=== PATIENT | female | born 1950 | race Caucasian/White ===

== ENCOUNTER 2023-07-20 00:47 | Inpatient (IN) | payer MEDICARE, MEDICAID, SELFPAY ==
[2023-07-19 21:58] VITALS: BMI 29.3
[2023-07-19 22:02] VITALS: BP 118/57
[2023-07-19 22:03] VITALS: BP 118/57
--- NOTE | 2023-07-19 22:16 | ED.GENMED ---
History of Present Illness
General
Chief Complaint: Skin Problem
Source: patient, ambulance crew and shelter records
Time Seen by Provider: 07/19/23 22:04
Nursing documentation reviewed up to this point in time: agreed with
Travel History
Have you had any contact with someone who has COVID-19?: No
Do you have any symptoms of coronavirus? Fever > 100 degrees, chills, cough, shortness of breath, sore throat, loss of taste or smell, muscle aches, or headache?: No
History of Present Illness
History of Present Illness:
Pleasant 72-year-old female presents with right arm swelling and erythema. She was running a fever. Patient has a history of lymphedema in her right arm. This is secondary to breast cancer where they did lymph node excision. She states that
while typically having swelling, she noticed some mild erythema approximately 1 month ago. She has not been on any antibiotics recently. Today she states that the swelling and erythema worsened. Patient also told the healthcare staff at [facility] where she resides that she had rib pain. They administered nitroglycerin and Tylenol, which did not provide any relief. Patient denied ever having chest pain and reports no rib pain. Patient's temperature on arrival was 99.5 after the
acetaminophen. She does complain of right arm pain.
Vital signs are stable. Patient not hypoxic
Nursing note reviewed. I agree with nursing documentation up to this point in time.
Home Meds and allergies reviewed.
NUMBER AND COMPLEXITY OF PROBLEMS ADDRESSED AT THE ENCOUNTER
� Chronic conditions affecting care: Right arm lymphedema, hypertension, heart murmur
� Acute Exacerbation and/or Progression of Chronic Illness: Lymphedema
� Differential Diagnosis includes: Lymphedema, DVT, cellulitis
AMOUNT AND/OR COMPLEXITY OF DATA TO BE REVIEWED AND ANALYZED
I performed an independent evaluation of the following and my interpretation is:
EKG:
CT:
X-rays:
Ultrasound:
Laboratory Studies:
Other:
Review of other/old records: No old records available, transfer records from [facility] reviewed
Clinical information was obtained by an independent historian: EMS
Prescriptions/Medications Considered but not given:
Further testing considered but not performed:
RISK OF COMPLICATIONS AND/OR MORBIDITY OR MORTALITY OF PATIENT MANAGEMENT
Social determinants of health affecting care: Good Social Support
Discussion with other providers:
Escalation of care including admission/observation vs risk of discharge considered:
CRITICAL CARE NOTE:
Total Time (exclusive of procedures):
Update:
Phy Exam
General Physical Exam
General Presentation: well appearing and no apparent distress
General Skin: warm and dry
General Habitus: normal
General Mental: alert
General Hydration: appears well hydrated
ENT Exam
ENT Exam: EOMI, pharynx normal, neck supple and normocephalic
Eye Exam
Eye Exam: PERRL, cornea clear and conjunctiva normal
Cardiovascular Exam
Cardiovascular Exam: regular rate/rhythm, no edema, no murmur and normal peripheral pulses
Pulmonary Exam
Pulmonary Exam: lungs clear, no respiratory distress, no rales, no crackles, no rhonchi, no stridor, no wheezing and no cough
Gastrointestinal Exam
Gastrointestinal Exam: normal bowel sounds, non tender, soft, no organomegaly, no pulsatile mass and non distended
Neurological Exam
Neurological Exam: alert, oriented x3, no motor deficits and speech normal
Musculoskeletal Exam
Musculoskeletal Exam: full ROM and no edema
Skin Exam
Skin Exam: redness
Psychiatric Exam
Psychiatric Exam: normal mood/affect
Course
Orders/Labs/Results
Orders:
Orders
07/19/23 22:14
Electrocardiogram (*1) Urgent
Reason for Study: Other
Other Reason for Exam: sepsis
EKG- Treatment ONCE
US Arms, Right [US Periph Venous UPPER Ext RT] Urgent
Comment:
Reason For Exam: Lymphedema with erythema
07/19/23 22:28
Complete Blood Count/With Diff Urgent
Comprehensive Metabolic Panel Urgent
Lactic Acid Q4H
Comment: CANCEL 2nd LACTIC ACID IF 1st LACTIC ACID IS LESS THAN 2
PTT Urgent
Procalcitonin Urgent
PCT Algorithmm Indication: Sepsis
Prothrombin Time Urgent
Troponin I Urgent
Blood Culture Q30M
KACIE Source: Blood/Venous
Specimen Description:
Blood Culture Q30M
KACIE Source: Blood/Venous
Specimen Description:
07/19/23 23:05
Urinalysis Reflex To Culture Urgent
Date Specimen was Collected: 07/19/23
Time Specimen was Collected: 23:03
Urine Microscopic Reflex Cult Urgent
Urine Culture Urgent
KACIE Source: U
Specimen Description:
Date Specimen was Collected: 07/19/23
Time Specimen was Collected: 23:03
07/19/23 23:45
Vancomycin [Vancocin] 2,000 mg 0.9% Sodium Chloride 500 ml [Nss] 500 ml IV NOW
07/20/23 00:14
Vancomycin [Vancocin] 1,500 mg 0.9% Sodium Chloride [Nss] 20 ml 0.9% Sodium Chloride 250 ml [Nss] 250 ml IV NOW
07/20/23 00:18
Admit/Transfer Patient As Directed
Co-Sign Provider:
Level of Care: Inpatient admission
Assign to:: Medical/Surgical
Physician / Group: Sharan
Diagnosis: RUE Cellulitis
Reason for Hospitalization: RUE Cellulitis
Expected length of stay greater than two midnights?: Yes
ELOS- Estimated Length of Stay in days: 3
I certify the patient meets the requirements for IP care: Yes
07/20/23 00:31
Code Status As Directed
Resuscitation Status: Do not resuscitate
Reached after discussion with pt or family/Healthcare POA: Yes
07/20/23 00:33
DNR Bracelet Application ONCE
07/20/23 02:42
Acetaminophen [Tylenol] 650 mg PO Q4H PRN
Ketorolac [Toradol] 15 mg IV Q6HPRN PRN
VANCOMYCIN Pharmacy to Dose [VANCOCIN Pharmacy to Dose] 1 each Pharmacy To Prepare [Call Pharmacy To Prepare] 0 ml IV PER PROTOCOL
07/20/23 02:42
Activity As Directed
Activity Level: Ambulate
With Assistance
Bladder Scan As Directed
Follow Bladder Retention/Intermittent Cath Algorithm?: Yes
PRN if no void in __ hours: 6
Frequency: Per Retention Algorithm
If Bladder Scan Result >: 400
then:: Straight cath
I/O [Intake/ Output] As Directed
Frequency: Per unit guidelines
Straight Cath As Directed
Frequency: Per Retention Algorithm
Additional Instructions: straight cath as needed per acute urinary retention algorithm for 24 hrs
Additional Instructions: for bladder scan greater than 400 mL
Vital Signs As Directed
Frequency: Per unit guidelines
Oxygen Therapy [O2 Therapy] [RESP] Routine
Titrate/Wean O2 to maintain O2 sat greater than (%): 94
Rx Incentive Spirometry [RESP] Routine
Frequency: q1h while awake
Ot Eval And Treat Routine
PT Consult [Pt Eval And Treat] Routine
Activity Level: Ambulate
With Assistance
DX Deep Vein Thrombosis Video Routine
07/20/23 06:00
Basic Metabolic Panel IN AM
Complete Blood Count/No Diff IN AM
TSH Reflex To Free T4 Routine
07/20/23 08:00
Uelliggyr-Sjh-Rtmm [Femara] 2.5 mg PO DAILY
Lisinopril [Zestril] 20 mg PO DAILY
Metoprolol [Lopressor] 25 mg PO DAILY
07/20/23 18:00
Enoxaparin Sodium [Lovenox] 40 mg SC QPM
07/21/23 Breakfast
Regular
Abnormal Lab Results
07/19/23 07/19/23
22:28 23:05
RBC 4.05 L 10^6/uL
(4.20-5.40)
Hct 35.9 L %
(37.0-47.0)
MCH 31.1 H pg
(27.0-31.0)
Sodium 131 L mmol/L
(135-145)
BUN 18 H mg/dl
(7-17)
Glucose 151 H mg/dl
(70-99)
Total Protein 5.5 L g/dl
(6.3-8.2)
Albumin 3.1 L g/dl
(3.5-5.0)
Urine Ketones 3+ A
(Negative)
Ur Occult Blood Reflex 2+ A
(Negative)
Urine Nitrite (Reflex) Positive A
(Negative)
Leukocyte Esterase Rfl Trace A
(Negative)
Urine RBC 7-10 A /HPF
(0-2)
07/19/23 22:28
07/19/23 22:28
Vital Signs
Initial and Last Documented VS:
Initial Vital Signs
BP
118/57
07/19/23 22:02
Last Documented Vital Signs
Temp Pulse Resp BP Pulse Ox
98.4 F 68 18 115/55 96
07/20/23 02:47 07/20/23 02:47 07/20/23 02:47 07/20/23 02:47 07/20/23 02:47
*Critical Care Note
Total Time (30-74mins, 75-104mins- exclusive of procedures): Not Applicable
Update Note
Update Note:
Ultrasound of the right upper extremity negative for DVT
ED Attending Note
-
Portions of this chart may have been created with voice recognition software.� Occasional wrong word or��sound alike� substitutions may have occurred due to the inherent limitations of voice recognition software.
Discharge Plan
Departure
Patient Disposition: Admit
Date of Disposition: 07/19/23
Time of Disposition: 23:47
Admit to: Telemetry
Presentation/result/management discussed w/ accepting MD/DO: Hospitalist
Condition: Fair
Discharge Problem:
Cellulitis, Acquired lymphedema
Interventions
Interventions:
*Risk Screen - Suicide Last Done: 07/19/23 22:15
*General Assessment Last Done: 07/19/23 22:09
*Neglect/Abuse Screening Last Done: 07/19/23 22:15
ED- Fall Risk Assessment Last Done: 07/19/23 22:15
*ED COVID-19 Vaccine History Last Done: 07/19/23 22:09
*Nursing Disposition Last Done: 07/20/23 02:35
ED-Skin Assessment Last Done: 07/19/23 22:15
Discharge Date and Time
Discharge Date/Time: 07/20/23 02:36
[2023-07-19 22:41] LABS: % Basophils 0.2 % (0-2); % Immature Granulocytes 0.5 % (0-0.5); % Lymphocytes 25.6 % (20.5-51.1); % Monocytes 3.9 % (1.7-9.3); % Neutrophils 69.8 % (42.2-75.2); Absolute Lymphocytes 1.7 10^3/uL (1.2-3.4); Absolute Monocytes 0.3 10^3/uL (0.1-0.6); Absolute Neutrophils 4.6 10^3/uL (1.4-6.5); Hematocrit 35.9 % (37.0-47.0); Hemoglobin 12.6 g/dL (12.0-16.0); Mean Corp Hgb Conc. 35.1 g/dL (33.0-37.0); Mean Corpuscular Hgb 31.1 pg (27.0-31.0); Mean Corpuscular Volume 88.6 fL (81.0-99.0); Mean Platelet Volume 10.2 fL (7.4-10.4); Nucleated Red Blood Cells % 0 %; Platelet Count 199 10^3/uL (130-400); Red Blood Cell Count 4.05 10^6/uL (4.20-5.40); Red Cell Dist. Width 12.1 % (11.5-14.5); White Blood Cell Count 6.6 10^3/uL (4.8-10.8)
[2023-07-19 22:52] LABS: INR 1.07; Lactic Acid 0.8 mmol/L (0.7-2.0); PT 13.8 Sec (11.4-14.6)
[2023-07-19 22:53] LABS: ALT (SGPT) 22 U/L (0-35); APTT 31.4 Sec (23.4-35.0); AST (SGOT) 30 U/L (14-36); Albumin 3.1 g/dl (3.5-5.0); Alkaline Phosphatase 91 U/L (38-126); Blood Urea Nitrogen 18 mg/dl (7-17); Calcium 8.5 mg/dl (8.4-10.2); Carbon Dioxide 24 mmol/L (22-30); Chloride 104 mmol/L (98-107); Estimated Creatinine Clearance 55 ml/min; Glucose 151 mg/dl (70-99); Potassium 3.8 mmol/L (3.5-5.1); Sodium 131 mmol/L (135-145); Total Bilirubin 0.6 mg/dl (0.2-1.3); Total Protein 5.5 g/dl (6.3-8.2); eGFR > 60.00
[2023-07-19 23:05] LABS: Troponin I < 0.012 ng/ml
[2023-07-19 23:08] LABS: Procalcitonin 0.08 ng/ml (0.0-0.25)
[2023-07-19 23:14] LABS: Urine Albumin Trace (Neg - Trace); Urine Bilirubin Negative (Negative); Urine Character Very Cloudy (Clear); Urine Color Yellow; Urine Glucose Negative (Negative); Urine Ketone 3+ (Negative); Urine Leukocyte Trace (Negative); Urine Nitrite Positive (Negative); Urine Occult Blood 2+ (Negative); Urine Specific Gravity 1.015 (<1.030); Urine Urobilinogen Negative (Neg - 1+)
[2023-07-19 23:20] LABS: Urine Squamous Cell 0-2 /LPF (Few)
[2023-07-19 23:21] LABS: Urine Amorphous Seen
[2023-07-20] VITALS (9 sets, daily range): BP systolic 78–130; BP diastolic 48–64; BMI 27.5
--- NOTE | 2023-07-20 00:35 | HPS.HSE ---
Family Physician
-
Family Physician: Floyd Devlin
Chief Complaint
-
Arm swelling / fever
History of Present Illness
Patient is a 72y F with PMH significant for breast cancer and hypertension and who presents to ED complaining of right arm swelling and redness for about one month. Patient first noted redness in the RUE about on month ago - localized to the
elbow at that time. She denies any significant pain at any point. She states that the redness has steadily increased over the past month or so. Today she had a fever at the [place] to 101.5 and was sent to the ED for further evaluation and treatment.
Patient is able to flex the elbow without pain. She denies any associated symptoms including cough, dyspnea, N/V/D, etc.
Patient is s/p lumpectomy and axillary dissection for breast cancer in 2012. She then underwent adjuvant chemo and XRT. She has chronic lymphedema as a result; however, the redness is entirely new.
Medical History
Past Medical History
Past Medical History: Reports Other
Additional Past Medical History:
Breast Cancer s/p Lumpectomy, Chemo and XRT
Hypertension
GERD
Past Surgical History: Reports Other
Additional Past Surgical History:
Right Lumpectomy / Axillary Dissection (2012)
Robotic Hysterectomy
Right TKA
Left JASPREET
Left Rotator Cuff Surgery x 2
Social History
Tobacco: Non-smoker
Alcohol: Occasional (Once a month.)
Drug: None
Family History
Family History: Not pertinent
Allergies / Home Medications
Allergies reflects when Allergies were last updated in [employer].
Home Medications with original date entered in [employer]
Allergy/Medication List:
Allergies
Allergy/AdvReac Type Severity Reaction Status Date / Time
Carbapenems Allergy Hives Verified 07/20/23 00:11
Cephalosporins Allergy Hives Verified 07/20/23 00:11
Penicillins Allergy Hives Verified 07/19/23 22:03
shellfish derived Allergy angioedema Verified 07/20/23 00:11
Sulfa (Sulfonamide Allergy Hives Verified 07/20/23 00:11
Antibiotics)
tetanus and diphtheria Allergy Myalgia Verified 07/20/23 00:11
toxoids
Home Medications
acetaminophen 325 mg tablet 650 mg PO Q4H PRN Pain / Temp > 101 07/20/23
bisacodyl 10 mg rectal suppository 10 mg [place] DAILY PRN Constipation 07/20/23
ferrous sulfate 325 mg (65 mg iron) tablet 325 mg PO DAILY 07/20/23
letrozole 2.5 mg tablet 2.5 mg PO DAILY 07/20/23
lidocaine 4 % topical patch 1 patch topical DAILY 07/20/23
lisinopril 20 mg tablet 20 mg PO DAILY 07/20/23
magnesium hydroxide 400 mg/5 mL oral suspension (Milk of Magnesia) 5 ml PO DAILY PRN constipation 07/20/23
magnesium oxide 400 mg PO DAILY 07/20/23
metoprolol tartrate 25 mg tablet 25 mg PO DAILY 07/20/23
multivitamin 1 tab PO DAILY 07/20/23
omeprazole 20 mg capsule,delayed release 20 mg PO DAILY 07/20/23
ondansetron HCl 4 mg tablet 4 mg PO Q6H PRN Nausea 07/20/23
potassium chloride 10 mEq tablet,extended release 10 meq PO DAILY 07/20/23
sodium phosphates 19 gram-7 gram/118 mL enema (Fleet Enema) 118 ml [place] DAILY PRN Constipation 07/20/23
Review of Systems
-
History Source: Patient
A 12 point ROS was completed and negative except as noted: Yes
Constitutional: Reports Fever; Denies Chills
EENT: Denies Sore Throat
Respiratory: Denies Cough or Trouble Breathing
Cardiac: Denies Chest Pain or Palpitations
Abdomen/GI: Denies Abdominal Pain, Nausea, Vomiting or Diarrhea
: Denies Dysuria or Frequency
Musculoskeletal: Reports Edema and Other (Redness)
Neurological: Denies Dizzy or Headache
Psych: Denies Depression or Anxiety
Physical Exam
Vital Signs
Vital Signs
Temp Pulse Resp BP Pulse Ox
99.5 F 65 14 118/57 95
07/19/23 22:03 07/19/23 22:03 07/19/23 22:03 07/19/23 22:03 07/19/23 22:03
Physical Exam
General: Other (72y F in no acute distress. Flat affect. Slow speech but coherent and oriented.)
HEENT: Moist mucous membranes
Respiratory: Clear; No Wheezes, Rales or Rhonchi
Cardiac: S1/S2 and Regular Rhythm; No Murmur
GI: Soft, Non Tender, Non Distended and Normal Bowel Sounds
Musculoskeletal: Other (Edema and erythema of the RUE from the shoulder to the wrist. Sparing of the hand. No evident skin lesion, laceration or wound. Increased warmth. No evident tenderness or restricted ROM. Erythema extends into the R
lateral chest.)
Neuro: Awake and Alert
Psych: No Agitated
Laboratory Results
-
07/19/23 22:28
07/19/23 22:
Laboratory Results
PT 13.8 Sec (11.4-14.6) 07/19/23 22:
INR 1.07 07/19/23 22:28
APTT 31.4 Sec (23.4-35.0) 07/19/23 22:
Lactic Acid 0.8 mmol/L (0.7-2.0) 07/19/23:
Total Bilirubin 0.6 mg/dl (0.2-1.3) 07/19/23 22:28
AST 30 U/L (14-36) 07/19/23 22:
ALT 22 U/L (0-35) 07/19/23:
Alkaline Phosphatase 91 U/L (38-126) 07/19/23 22:28
Troponin I < 0.012 ng/ml 07/19/23 22:28
Impression/Plan
-
A/P: Patient is a 72y F with PMH significant for hypertension and breast cancer who presents to ED from local [place] for evaluation of fever and RUE redness.
RUE Cellulitis
Chronic RUE Lymphedema
- Admit for further evaluation and treatment.
- IV Vancomycin for now given multiple drug allergies.
- Follow for clinical improvement.
- US is pending for further evaluation - [place] records include recent Doppler (06/06/23) which was negative for DVT.
Benign Hypertension
- Stable. Continue outpatient regimen with holding parameters.
History of Breast Cancer
- s/p lumpectomy, chemo and XRT.
- Now maintained on letrozole. Will continue.
Parkinsonism
- Unclear etiology. Limited history available from [place].
- Flat affect and some slowness to speech.
- Follow for any changes.
- PT / OT evaluations.
DVT Prophylaxis: Lovenox
Code Status: DNR
[2023-07-20] MEDS: VANCOCIN 300 MG IV (01:04)
[2023-07-20] MEDS: VANCOCIN 300 ML IV (01:04)
--- NOTE | 2023-07-20 03:55 | PTCARENOTE ---
Addendum entered by Derek Park RN 07/20/23 04:15:
Stat magnesium and troponin levels ordered by [facility] ANETA Gonzalez
Original Note:
Pt arrived to unit from ED and was a pullover assist from stretcher to bed. Pt is AAOx3 with 7/10 chronic pain in bilateral legs per pt. Placed on tele with HR fluctuating between 30s-150s. Pt reports having chest pain that resolved after a few
minutes. Pt oriented to room, call nicholson within reach. VS stable on admission. [facility] [employer]MASTER RELIEF Tatiana Gonzalez notified of chest pain and HR change. Will continue to monitor.
[2023-07-20 04:42] LABS: Hematocrit 37.6 % (37.0-47.0); Mean Corp Hgb Conc. 34.6 g/dL (33.0-37.0); Mean Corpuscular Hgb 31.2 pg (27.0-31.0); Mean Corpuscular Volume 90.2 fL (81.0-99.0); Mean Platelet Volume 9.9 fL (7.4-10.4); Platelet Count 192 10^3/uL (130-400); Red Blood Cell Count 4.17 10^6/uL (4.20-5.40); Red Cell Dist. Width 12.1 % (11.5-14.5); White Blood Cell Count 6.2 10^3/uL (4.8-10.8)
[2023-07-20 05:06] LABS: Blood Urea Nitrogen 18 mg/dl (7-17); Calcium 8.9 mg/dl (8.4-10.2); Carbon Dioxide 27 mmol/L (22-30); Chloride 101 mmol/L (98-107); Estimated Creatinine Clearance 60 ml/min; Glucose 148 mg/dl (70-99); Magnesium 1.9 mg/dl (1.6-2.3); Potassium 4.1 mmol/L (3.5-5.1); Sodium 135 mmol/L (135-145); eGFR > 60.00
[2023-07-20 05:08] LABS: Troponin I < 0.012 ng/ml
[2023-07-20 05:36] LABS: TSH Reflex To Free T4 3.25 uIU/ml (0.47-4.68)
--- NOTE | 2023-07-20 07:36 | PTCARENOTE ---
Cardiology consult ordered by House JEWEL STRIPPER Tatiana Gonzalez. No more chest pain reported, trops and EKG negative. Will continue to monitor.
--- NOTE | 2023-07-20 08:41 | CON.CAR ---
Addendum entered and electronically signed by Donte Lo MD 07/20/23 12:46:
I saw and examined the patient.
The MULTI CARE TECHNICIAN's note was reviewed and I agree with the note.
Comment: Tele shows an atrial tachycardia that correlated wtih her palpitations. Mild asymptomatic nocturnal bradycardia should not need treatment or deter mild increase in beta viktor therapy. Will check echo and watch for AFib.
Original Note:
Consultation
Consultation Request
Date/Time Consultation Requested: 07/20/23550
Date/Time Consultation Performed: 07/20/23809
Requesting Provider: Tatiana Gonzalez NP
Performing Provider: Catie MONTGOMERY for Dr. Lo
Reason for Consultation: arrhythmia
Medical History
-
Chief Complaint: RUE redness, swelling, discomfort, fever
History of Present Illness:
72 y/o female with hx breast CA (radiation/chemo, lumpectomy), right upper extremity lymphedema, hypertension, and GERD who is here for evaluation from [facility] for 1 month of right upper extremity redness, worsened swelling, discomfort and
fever up to 101.5 per chart. She is admitted for cellulitis and is being treated with abx. We are consulted since overnight episodes of tachycardia were noted, which were symptomatic with palpitations 'fluttering' per patient. She denies any CP,
SOB, dizziness, or syncope.
Past Medical History
Past Medical History: Cancer, GERD, HTN and Other (as above)
Social History
Tobacco: Non-Smoker
Living: [facility]
Family History
Family History: Other (move with valve issue and surgery- details unknown)
Allergies / Home Medications
Allergy/AdvReac Type Severity Reaction Status Date / Time
Carbapenems Allergy Hives Verified 07/20/23 00:11
Cephalosporins Allergy Hives Verified 07/20/23 00:11
Penicillins Allergy Hives Verified 07/19/23 22:03
shellfish derived Allergy angioedema Verified 07/20/23 00:11
Sulfa (Sulfonamide Allergy Hives Verified 07/20/23 00:11
Antibiotics)
tetanus and diphtheria Allergy Myalgia Verified 07/20/23 00:11
toxoids
Medication Instructions Recorded Confirmed Type
acetaminophen 325 mg tablet 650 mg PO Q4H PRN Pain / Temp > 101 07/20/23 07/20/23 History
bisacodyl 10 mg rectal suppository 10 mg [place] DAILY PRN Constipation 07/20/23 07/20/23 History
ferrous sulfate 325 mg (65 mg 325 mg PO DAILY 07/20/23 07/20/23 History
iron) tablet
letrozole 2.5 mg tablet 2.5 mg PO DAILY 07/20/23 07/20/23 History
lidocaine 4 % topical patch 1 patch topical DAILY 07/20/23 07/20/23 History
lisinopril 20 mg tablet 20 mg PO DAILY 07/20/23 07/20/23 History
magnesium hydroxide 400 mg/5 mL 5 ml PO DAILY PRN constipation 07/20/23 07/20/23 History
oral suspension (Milk of Magnesia)
magnesium oxide 400 mg PO DAILY 07/20/23 07/20/23 History
metoprolol tartrate 25 mg tablet 25 mg PO DAILY 07/20/23 07/20/23 History
multivitamin 1 tab PO DAILY 07/20/23 07/20/23 History
omeprazole 20 mg capsule,delayed 20 mg PO DAILY 07/20/23 07/20/23 History
release
ondansetron HCl 4 mg tablet 4 mg PO Q6H PRN Nausea 07/20/23 07/20/23 History
potassium chloride 10 mEq 10 meq PO DAILY 07/20/23 07/20/23 History
tablet,extended release
sodium phosphates 19 gram-7 118 ml [place] DAILY PRN Constipation 07/20/23 07/20/23 History
gram/118 mL enema (Fleet Enema)
Review of Systems
-
History Source: Patient
All other systems: Negative unless noted
Constitutional: Fever
Cardiac: Palpitations
Skin: Other (RUE redness, swelling)
Physical Exam
Vital Signs
Temp Pulse Resp BP Pulse Ox
97.8 F 57 16 114/53 95
07/20/23 08:12 07/20/23 08:12 07/20/23 08:12 07/20/23 08:12 07/20/23 08:12
Lab Results
07/20/23 04:24
07/20/23 04:24
Troponin I < 0.012 ng/ml 07/20/23 04:24
Physical Exam
General: Well Developed, Well Nourished and No Apparent Distress
HEENT: Normocephalic and Anicteric
Respiratory: Clear and Non Labored Respirations
Cardiac: Regular Rhythm and Murmur (II/ systolic)
Musculoskeletal: Edema (RUE with swelling)
Skin: Warm and Dry
Neuro: Awake, Alert and Oriented
Psych: Calm
Impression / Plan
-
RUE cellulitis:
-u/s negative for DVT
-on IV abx
-management per primary team
Arrhythmia:
-overnight, patient had episodes of tachycardia up to 140's- likely atrial tachycardia to my review, but will review with Dr. Lo of EP. She felt 'fluttering' at the time.
-no severe bradycardia noted
-would adjust metoprolol to long-acting and follow telemetry
-TSH normal
-check echo
Murmur:
-reports this is not new, but no records of previous echo
-check echo as above
HTN:
-stable on ACEI/BB
-follow
Data Reviewed
-
EKG: Tracing Personally Visualized and interpreted (SR with PVC's)
Ultrasound: Report Reviewed by me ( 07/19/23: No evidence of deep venous thrombosis in the right upper extremity)
Labs: Labs Reviewed by me
[2023-07-20] MEDS: LOPRESSOR 25 MG PO (09:07)
[2023-07-20] MEDS: ZESTRIL 20 MG PO (09:08)
[2023-07-20] MEDS: PROTONIX 40 MG PO (09:08)
[2023-07-20] MEDS: FEMARA 2.5 MG PO (09:08)
--- NOTE | 2023-07-20 11:03 | PHA.VAN.IN ---
Assessment
- Assessment
Renal Function: Unknown baseline (SCr 0.8)
Maximum Temperature: 99.5
Minimum Temperature: 97.8
AUC Dosing Plan
- Dosing Variables
Dosing Weight (kg): 72.7
Dosing CrCl (ml/min): 60
Vd coefficient (L/kg): 0.7
- Empiric Dosing
Initial / Loading Dose: 1500 mg 07/19 01:04
Maintenance Regimen: 1500 mg q24h starting 07/20 0600, 750 mg dose 07/19 at 1600
Estimated AUC (mcg*h/mL): 566
Estimated Peak (mcg*h/mL): 40.5
Estimated Trough (mcg/ml): 12
Estimated Half Life (H): 12.8
- Monitoring
No levels ordered at this time: consider in the upcoming days
Pharmacokinetics Vancomycin I
- -
Patient Age: 72
Patient Sex: Female
Vancomycin Day #: 1
Indication: Skin And Soft Tissue
Requesting Provider: Dr Tsang
Pertinent Antimicrobial Allergies:
Carbapenems Allergy (Verified 07/20/23 00:11) Hives
Cephalosporins Allergy (Verified 07/20/23 00:11) Hives
Penicillins Allergy (Verified 07/19/23 22:03) Hives
Sulfa (Sulfonamide Antibiotics) Allergy (Verified 07/20/23 00:11) Hives
first admission at ; no historical beta-lactam administrations
Height / Weight:
Height 5 ft 4 in
Actual Weight 72.717 kg
Pertinent Past Medical History: Breast CA, lymphedema; redness of RUE fro ~1 month
- Vital Signs / Lab Results
Temp Pulse Resp BP Pulse Ox
97.8 F 57 16 114/53 95
07/20/23 08:12 07/20/23 09:07 07/20/23 08:12 07/20/23 09:07 07/20/23 08:12
Lab Results - Hematology
07/19/23 07/20/23
22:28 04:24
WBC 6.6 6.2
Lab Results - Chemistry
07/19/23 07/20/23
22:28 04:24
BUN 18 H 18 H
Creatinine 0.9 0.8
Estimated Creat Clear 55 60
Albumin 3.1 L
07/19/23 07/20/23
22:28 02:15
Lactic Acid 0.8 Cancelled
Lab Results - Urine
07/19/23
23:05
Urine Nitrite (Reflex) Positive A
Leukocyte Esterase Rfl Trace A
Urine WBC (Reflex) 6-10
Ur Squamous Epith Cells 0-2
--- NOTE | 2023-07-20 16:26 | W.PN.HOSP.TC ---
Documented by User: Ellyn Guerrier MD, Resident 07/20/23 17:16
Today's Communication/Plan
-
See a/p
Assessment / Plan
Assessment / Plan
Assessment :
Right Upper Extremity Cellulitis
Arrhythmia
Conditions Prior To Admission
History of Breast Cancer s/p Lumpectomy, chemotherapy and XRT
Hypertension
Plan
Right Upper extremity Cellulitis
-Ultrasound negative for DVT
-Continue Antibiotics Vancomycin
-Elevate ARM
-Avoid Blood draw from Right Extremity.
Arrhythmia
- Patient had episodes of tachycardia up to 140s overnight
-Cardiology consulted.
- Echo pending
-TSH normal
-Per cardiology, Adjust Metoprolol to Long Acting
-Telemetry monitoring
2/6 Systolic Murmur
-No prior information. Patient unaware
-Cardiology consulted
-Echo Pending
Hypertension
-Continue ADELITA/ARBs
Code Status: DNR
DVT prophyl: Lovenox
Anticipated Discharge: Within 24 hours
Subjective/Interval History
-
Date of Service: July 20, 2023
Objective Data
-
Labs:
Laboratory Results
07/20/23
04:24
WBC 6.2
Hgb 13.0
Hct 37.6
Plt Count 192
Sodium 135
Potassium 4.1
Chloride 101
Carbon Dioxide 27
BUN 18 H
Creatinine 0.8
Glucose 148 H
Calcium 8.9
Vital Signs:
Vital Signs
Temp Pulse Resp BP Pulse Ox
97.8 F 57 16 114/53 95
07/20/23 08:12 07/20/23 09:07 07/20/23 08:12 07/20/23 09:07 07/20/23 08:12
I&O
07/19/23 07/20/23 07/21/23
06:59 06:59 06:59
Intake Total 300 / 300 240 / 240
Balance 300 / 300 240 / 240
Review of Systems
-
History Source: Patient
Constitutional: Reports Fever and Chills
EENT: Reports No Symptoms Reported
Respiratory: Reports No Symptoms
Cardiac: Reports No Symptoms
Abdomen/GI: Reports No Symptoms
Genitourinary: Reports No Symptoms
Musculoskeletal: Reports Edema (Right Upper extremity )
Skin: Reports Other (RUE erythema Shoulder to Wrist )
Neuro: Reports No Symptoms
Endocrine: Reports No Symptoms
Physical Exam
-
General: Well Developed and Appears in Distress
HEENT: Normocephalic and Atraumatic
Respiratory: Clear to Auscultation; Negative Wheezes
Cardiac: Regular Rhythm, S1/S2 and Murmur (II/ Systolic Murmur)
GI: Soft, Nontender and Nondistended
Musculoskeletal: No Clubbing, No Cyanosis and No Edema (RUE edema )
Skin: Other (RUE erythema from shoulder to wrist)
Neuro: Awake, Alert, Oriented and AO x 3
Psych: Calm

Documented by User: Vasquez Crabtree MD 07/20/23 20:44
Review of Systems
-
All other systems: Reviewed and negative
Physical Exam
-
Skin: Other (RUE erythema warmth from shoulder to wrist)
[2023-07-20] MEDS: VANCOCIN 150 IV (17:03)
[2023-07-20] MEDS: LOVENOX 40 MG SC (17:03)
[2023-07-20] MEDS: DESENEX/MITRAZOL/ZEASORB 1 APPLIC TOPICAL (20:55)
[2023-07-20] MEDS: TYLENOL 650 MG PO (21:11)
--- NOTE | 2023-07-20 23:00 | PTCARENOTE ---
Addendum entered by Derek Park RN 07/21/23 05:45:
Pt had another episode of center chest pain around 0045 that lasted a few minutes and resolved. Breaks NAETA Boone notified.
Original Note:
Pt's BP manually was 78/50 in left arm while lying down around 2300. Pt reports having pain in the center of her chest that resolved. EKG taken and showing normal sinus rhythm. Pt remains AAOx3. Pt with pallor and reports feeling nauseous and
that her head feels 'foggy'. Pt had an incontinence episode of dark brown/black large loose bowel movement. Stool heme tested and was negative. Breaks ANETA Boone notified of findings. CBC and BMP ordered stat. BP rechecked at 0055 was
95/48, pt still feeling nauseous. Shalom Boone notified of additional findings, order placed for 1x 250 normal saline bolus and 1x IV Zofran 4mg given to pt. BP after IV bolus was 99/47, pt reports that nausea and 'foggy feeling' have
resolved. Will continue to monitor.
[2023-07-20 23:34] LABS: Glucose - Point of Care 211 mg/dl (70-99)
[2023-07-21] VITALS (7 sets, daily range): BP systolic 95–140; BP diastolic 47–60
[2023-07-21] LABS: % Basophils 0.6 % (0-2); % Immature Granulocytes 0.2 % (0-0.5); % Lymphocytes 35.3 % (20.5-51.1); % Monocytes 6.2 % (1.7-9.3); % Neutrophils 55.7 % (42.2-75.2); Absolute Eosinophils 0.1 10^3/uL (0-0.7); Absolute Lymphocytes 1.8 10^3/uL (1.2-3.4); Absolute Monocytes 0.3 10^3/uL (0.1-0.6); Absolute Neutrophils 2.8 10^3/uL (1.4-6.5); Hematocrit 34.9 % (37.0-47.0); Hemoglobin 12.2 g/dL (12.0-16.0); Mean Corpuscular Volume 88.8 fL (81.0-99.0); Nucleated Red Blood Cells % 0 %; Platelet Count 197 10^3/uL (130-400); Red Blood Cell Count 3.93 10^6/uL (4.20-5.40); Red Cell Dist. Width 12.1 % (11.5-14.5)
[2023-07-21 00:16] LABS: Blood Urea Nitrogen 31 mg/dl (7-17); Calcium 8.7 mg/dl (8.4-10.2); Carbon Dioxide 24 mmol/L (22-30); Chloride 103 mmol/L (98-107); Estimated Creatinine Clearance 48 ml/min; Glucose 197 mg/dl (70-99); Potassium 3.6 mmol/L (3.5-5.1); Sodium 135 mmol/L (135-145); eGFR 59.12
[2023-07-21] MEDS: ZOFRAN 4 MG IV (01:20)
[2023-07-21] MEDS: NSS 250 IV (01:20)
[2023-07-21] MEDS: VANCOCIN IV ×2 (06:12)
[2023-07-21] MEDS: VANCOCIN 300 ML IV (07:57)
[2023-07-21] MEDS: VANCOCIN 300 MG IV (07:57)
--- NOTE | 2023-07-21 08:29 | PHA.VAN.FU ---
Vancomycin Assessment / Plan
- Assessment
Renal Function: SCR Decreasing
WBC's are: Stable
In the past 24 hrs, patient has been: Afebrile
- Dosing Plan
Continue: Vanc 1500mg Q24H
- Monitoring Plan
No level(s) ordered at this time: consider levels in next few days
- Follow Up
Pharmacy will continue to follow.
Vancomycin Follow UP
- -
Patient Age: 72
Patient Sex: Female
Vancomycin Day #: 2
Indication: Skin And Soft Tissue
Requesting Provider: Dr Tsang
Pertinent Antimicrobial Allergies:
Carbapenems - Hives
Cephalosporins - Hives
Penicillins - Hives
Sulfa (Sulfonamide Antibiotics) - Hives
Height / Weight:
Height 5 ft 4 in
Actual Weight 72.717 kg
Pertinent Past Medical History: Breast cancer
- Vital Signs / Lab Results
Temp Pulse Resp BP Pulse Ox
98.3 F 66 16 111/56 96
07/21/23 07:53 07/21/23 07:53 07/21/23 07:53 07/21/23 07:53 07/21/23 07:53
Lab Results - Hematology
07/19/23 07/20/23 07/20/23
22:28 04:24 23:50
WBC 6.6 6.2 5.0
Lab Results - Chemistry
07/19/23 07/20/23 07/20/23
22:28 04:24 23:50
BUN 18 H 18 H 31 H
Creatinine 0.9 0.8 1.0
Estimated Creat Clear 55 60 48
Albumin 3.1 L
07/19/23 07/20/23
22:28 02:15
Lactic Acid 0.8 Cancelled
Microbiology Results
07/19/23 22:28 Blood Culture - Preliminary
Blood/Venous No Growth in 24 hours- Final report to follow
07/19/23 22:28 Blood Culture - Preliminary
Blood/Venous Positive culture in progress
[2023-07-21 09:42] LABS: % Basophils 0.7 % (0-2); % Eosinophils 2.7 % (0-6); % Immature Granulocytes 0.2 % (0-0.5); % Lymphocytes 32.4 % (20.5-51.1); % Monocytes 8.8 % (1.7-9.3); % Neutrophils 55.2 % (42.2-75.2); Absolute Eosinophils 0.1 10^3/uL (0-0.7); Absolute Lymphocytes 1.4 10^3/uL (1.2-3.4); Absolute Monocytes 0.4 10^3/uL (0.1-0.6); Absolute Neutrophils 2.4 10^3/uL (1.4-6.5); Hematocrit 34.9 % (37.0-47.0); Hemoglobin 12.1 g/dL (12.0-16.0); Mean Corp Hgb Conc. 34.7 g/dL (33.0-37.0); Mean Corpuscular Hgb 31.2 pg (27.0-31.0); Mean Corpuscular Volume 89.9 fL (81.0-99.0); Mean Platelet Volume 10.7 fL (7.4-10.4); Nucleated Red Blood Cells % 0 %; Platelet Count 167 10^3/uL (130-400); Red Blood Cell Count 3.88 10^6/uL (4.20-5.40); Red Cell Dist. Width 12.2 % (11.5-14.5); White Blood Cell Count 4.4 10^3/uL (4.8-10.8)
--- NOTE | 2023-07-21 09:53 | W.PN.CD ---
Today's Communication / Plan
-
continue current dose of bb
if hypotension persists give bb preferentiatll
no arrhythmia at time of hypotension, w/u per medicine
I will see again at your request
Impression / Plan
-
RUE cellulitis:
-u/s negative for DVT
-on IV abx
-management per primary team
Arrhythmia:
-overnight, patient had episodes of tachycardia up to 140's- likely atrial tachycardia to my review, but will review with Dr. Lo of EP. She felt 'fluttering' at the time.
-no severe bradycardia noted
-now in NSR, no arrhythmia at the time of hypotension
-continue current dosing
Murmur:
-echo with aortic sclerosis.
HTN:
-on ACEI/BB
-with episode of Hypotension, would preferentially give bb and then ACEI as able
Subjective:
-she is overwhelmed by being here and her illness, but no cp, sob or palpitations.
TTE 07/20/23:
�CONCLUSIONS
�Normal biventricular size and systolic function without regional wall motion
�abnormality. Estimated LVEF 55-60%.
�Aortic sclerosis without stenosis.
�No prior study available for comparison.
Physical Exam
Vital Signs/Labs
Vital Signs
Temp Pulse Resp BP Pulse Ox
98.3 F 66 16 111/56 96
07/21/23 07:53 07/21/23 07:53 07/21/23 07:53 07/21/23 07:53 07/21/23 07:53
07/20/23 07/21/23 07/22/23
06:59 06:59 06:59
Actual Weight 72.717 kg
07/21/23 09:11
PT 13.8 Sec (11.4-14.6) 07/19/23 22:28
INR 1.07 07/19/23 22:28
APTT 31.4 Sec (23.4-35.0) 07/19/23 22:28
Magnesium 1.9 mg/dl (1.6-2.3) 07/20/23 04:24
LAB Results
07/19/23 07/20/23
22: 04:24
Troponin I < 0.012 < 0.012
Physical Exam
Constitutional: No acute distress, Comfortable and Confusion
Cardiovascular: Rhythm & rate is regular, Pedal edema is absent, JVD pressure is normal, Systolic murmur present and S1S2 is normal
Respiratory: Respiratory effort normal, Lungs clear to auscul., Wheeze Absent, Crackles Absent and Rhonchi Absent
Neuro/Psych: AO x 3
Other: Other (erythematous, swollen right arm )
Data Reviewed
-
Date of Service: July 21, 2023
EKG: Tracing Personally Visualized and interpreted (Tele: NSR a lot of artifact on tele)
--- NOTE | 2023-07-21 10:00 | PTCARENOTE ---
Due to hypotension overnight and bradycardia this morning (HR dropping to 30's at times), spoke with Dr. Templeton prior to giving scheduled cardiac meds. Dr. Templeton advised that toprol be given and lisinopril held at this time.
[2023-07-21 10:06] LABS: ALT (SGPT) 31 U/L (0-35); AST (SGOT) 34 U/L (14-36); Alkaline Phosphatase 87 U/L (38-126); Blood Urea Nitrogen 27 mg/dl (7-17); Calcium 8.8 mg/dl (8.4-10.2); Carbon Dioxide 24 mmol/L (22-30); Chloride 106 mmol/L (98-107); Estimated Creatinine Clearance 60 ml/min; Glucose 177 mg/dl (70-99); Sodium 137 mmol/L (135-145); Total Bilirubin 0.3 mg/dl (0.2-1.3); Total Protein 5.4 g/dl (6.3-8.2); eGFR > 60.00
[2023-07-21] MEDS: ZESTRIL PO (10:11)
[2023-07-21] MEDS: FEMARA 2.5 MG PO (10:12)
[2023-07-21] MEDS: TOPROL XL 25 MG PO (10:12)
[2023-07-21] MEDS: TYLENOL 650 MG PO (10:12)
[2023-07-21] MEDS: PROTONIX 40 MG PO (10:12)
[2023-07-21] MEDS: DESENEX/MITRAZOL/ZEASORB 1 APPLIC TOPICAL ×2 (10:15→20:15)
[2023-07-21] MEDS: TORADOL 15 MG IV ×2 (11:50→20:14)
--- NOTE | 2023-07-21 13:00 | PTCARENOTE ---
Received patient at 1330. Patient is AAOx3, with a slow and soft speech. Patient has no c/o pain at present, RUE elevated on a pillow, call nicholson in reach, air cushion placed under patient's heels. Patient repositioned with assist x2. Patient
incontinent of urine and BM. Buttocks and marylin area are wnl-Desenex applied, there is a large, red, raised, flaky area on right thigh-patient does not c/o pain or itching at site.
--- NOTE | 2023-07-21 14:58 | CM ---
manager environmental reviewed patient's chart and met with patient and patient reports that she resides at [facility], patient reports she has a walker but mainly uses a w/c at nursing facility. manager environmental left a message for Trudy in admissions.
[facility]
Plan; Patient to return to [facility]. Message left with admissions.
[2023-07-21] MEDS: LOVENOX 40 MG SC (17:11)
[2023-07-21] MEDS: NSS 1000 IV (17:14)
[2023-07-21 17:20] LABS: Lactic Acid 1.4 mmol/L (0.7-2.0)
--- NOTE | 2023-07-21 17:41 | W.PN.HOSP.TC ---
Addendum entered and electronically signed by Nirmal Crabtree MD 07/21/23 22:49:
Attending Addendum-
I saw and evaluated the patient. I reviewed the resident�s note and agree with findings and plan as documented in the resident�s note. redness improving still with swelling exam: RUE decreased swelling and redness pulses intact heart RRR lungs clear
abd soft LE no edema Plan- RUE cellulitis- cont vanco elevate arm blood cx pos and pending cont to monitor
Time spent coordinating care, review of plan of care with resident, review of records, med rec, consults, notes, labs, rads, d/w nursing - 35 mins
Original Note:
Documented by User: Ellyn Guerrier MD, Resident 07/21/23 18:05
Today's Communication/Plan
-
Improvement in Erythema and edema.
Blood culture positive for Gram positive cocci in cluster.
Episode of Hypotension overnight BP 78/50, nausea and head feeling 'foggy' improved with IV Zofran and Normal Saline.
Check Lactate Level.
Monitor CBC
IV fluids.
Assessment / Plan
Assessment / Plan
Assessment :
Right Upper Extremity Cellulitis
Conditions Prior To Admission
History of Breast Cancer s/p Lumpectomy, chemotherapy and XRT
Hypertension
Plan
Right Upper extremity Cellulitis
-Ultrasound negative for DVT
-Blood culture positive for Gram positive cocci in cluster.
-Continue Antibiotics Vancomycin
-Elevate ARM
-Avoid Blood draw from Right Extremity.
-Episode of Hypotension at overnight BP 78/50, nausea and head feeling 'foggy' improved with IV Zofran and Normal Saline.
-Check Lactate Level.
-Monitor CBC
- IV fluids.
Arrhythmia
- Patient had episodes of tachycardia up to 140s in the ED
- Echo 07/20/23 Normal biventricular size and systolic function without regional wall motion
�abnormality. Estimated LVEF 55-60%.
�Aortic sclerosis without stenosis.
-TSH normal
-Per cardiology input, Continue Current dosing of Long Acting Metoprolol
-EKG during Hypotensive episode Normal Sinus Rhythm
2/6 Systolic Murmur
-No prior information. Patient unaware
-Echo with aortic sclerosis
Hypertension
-Per cardiology input, Due to episode of Hypotension overnight, would preferentially give bb and then ACEI as able
Code Status: DNR
DVT prophyl: Lovenox
Anticipated Discharge: 24 - 48 hours
Subjective/Interval History
-
Patient reports pain 5/10 at the site of infection. Reports improvement of symptoms.
Objective Data
-
Labs:
Laboratory Results
07/21/23
09:11
WBC 4.4 L
Hgb 12.1
Hct 34.9 L
Plt Count 167
Sodium 137
Potassium 4.0
Chloride 106
Carbon Dioxide 24
BUN 27 H
Creatinine 0.8
Glucose 177 H
Calcium 8.8
Total Bilirubin 0.3
AST 34
ALT 31
Alkaline Phosphatase 87
Vital Signs:
Vital Signs
Temp Pulse Resp BP Pulse Ox
98.0 F 54 16 101/48 97
07/21/23 15:05 07/21/23 15:05 07/21/23 15:05 07/21/23 15:05 07/21/23 15:05
I&O
07/20/23 07/21/23 07/22/23
06:59 06:59 06:59
Intake Total 300 / 300 1180 / 1180 840 / 840
Balance 300 / 300 1180 / 1180 840 / 840
Review of Systems
-
All other systems: Reviewed and negative (except as documented)
Physical Exam
-
General: Well Developed, Well Nourished and No Apparent Distress
HEENT: Normocephalic and Atraumatic
Respiratory: Clear to Auscultation; Negative Wheezes or Rales
Cardiac: Regular Rhythm, S1/S2 and Murmur (II/ Systolic Murmur)
GI: Soft, Nontender, Nondistended and Normal Bowel Sounds
Musculoskeletal: No Clubbing, No Cyanosis and Edema, Right Upper Extrem
Skin: Other (RUE erythema warmth from shoulder to wrist)
Neuro: Awake, Alert, Oriented and AO x 3
Psych: Calm

Documented by User: Nirmal Crabtree MD 07/21/23 22:46
Review of Systems
-
History Source: Patient
Respiratory: Reports No Symptoms
Cardiac: Reports No Symptoms
Abdomen/GI: Reports No Symptoms
Skin: Reports Other (RUE redness)
Data Reviewed
-
Ultrasound: Report Reviewed by me
Labs: Labs Reviewed by me and Discussed with Physician
[2023-07-22] VITALS (8 sets, daily range): BP systolic 94–128; BP diastolic 44–58
--- NOTE | 2023-07-22 01:15 | PTCARENOTE ---
Pt with heart rate in the 40s when sleeping. Awakened and BP checked 119/56. Pt asymptomatic. Will continue to monitor.
[2023-07-22] MEDS: VANCOCIN 300 ML IV (05:36)
[2023-07-22] MEDS: VANCOCIN 300 MG IV (05:36)
[2023-07-22 08:23] LABS: % Basophils 0.5 % (0-2); % Eosinophils 4.1 % (0-6); % Lymphocytes 40.2 % (20.5-51.1); % Monocytes 8.1 % (1.7-9.3); % Neutrophils 47.1 % (42.2-75.2); Absolute Eosinophils 0.2 10^3/uL (0-0.7); Absolute Lymphocytes 1.6 10^3/uL (1.2-3.4); Absolute Monocytes 0.3 10^3/uL (0.1-0.6); Absolute Neutrophils 1.9 10^3/uL (1.4-6.5); Hematocrit 34.5 % (37.0-47.0); Hemoglobin 11.8 g/dL (12.0-16.0); Mean Corp Hgb Conc. 34.2 g/dL (33.0-37.0); Mean Corpuscular Hgb 31.1 pg (27.0-31.0); Nucleated Red Blood Cells % 0 %; Red Blood Cell Count 3.79 10^6/uL (4.20-5.40); Red Cell Dist. Width 11.9 % (11.5-14.5); White Blood Cell Count 3.9 10^3/uL (4.8-10.8)
[2023-07-22 08:50] LABS: Platelet Count 165 10^3/uL (130-400)
[2023-07-22 09:47] LABS: Blood Urea Nitrogen 28 mg/dl (7-17); Calcium 9.1 mg/dl (8.4-10.2); Carbon Dioxide 18 mmol/L (22-30); Chloride 111 mmol/L (98-107); Estimated Creatinine Clearance 60 ml/min; Glucose 157 mg/dl (70-99); Potassium 4.2 mmol/L (3.5-5.1); Sodium 139 mmol/L (135-145); eGFR > 60.00
[2023-07-22] MEDS: FEMARA 2.5 MG PO (09:49)
[2023-07-22] MEDS: ZESTRIL 20 MG PO (09:50)
[2023-07-22] MEDS: TOPROL XL 25 MG PO (09:50)
[2023-07-22] MEDS: PROTONIX 40 MG PO (09:50)
[2023-07-22] MEDS: NSS 1000 IV (09:51)
[2023-07-22] MEDS: DESENEX/MITRAZOL/ZEASORB 1 APPLIC TOPICAL ×2 (09:52→20:08)
[2023-07-22] MEDS: TORADOL 15 MG IV ×2 (09:57→20:07)
--- NOTE | 2023-07-22 10:40 | W.PN.HOSP.TC ---
Addendum entered and electronically signed by Nirmal Crabtree MD 07/22/23 23:42:
Attending Addendum-
I saw and evaluated the patient. I reviewed the resident�s note and agree with findings and plan as documented in the resident�s note. patient feels improved less redness and swelling Exam: heart RRR 23/6 Sm @ RUSB, lungs clear abd soft LE no edema
skin RUE swelling and redness-fading, not warm pulses intact
Plan-
# RUE cellulitis- improving, cont vanco elevate arm blood cx pos staph epi, not MRSA transition to PO on DC DC IVF
# Breast ca- cont meds
# Leukopenia- med s/e from vanco? repeat in am
# Metabolic Acidosis- unclear etiology repeat CBC in am may need to check ABG for further eval if worsening
Dispo DC home in am
Time spent coordinating care, review of plan of care with resident, review of records, med rec, consults, notes, labs, rads, d/w nursing - 36 mins
Original Note:
Documented by User: Ellyn Guerrier MD, Resident 07/22/23 18:03
Today's Communication/Plan
-
Continue IV Antibiotics Vancomycin. Improvement of symptoms with Antibiotics
Elevate ARM
Discussed with case management regarding discharge planning and return to Assisted living facility
Assessment / Plan
Assessment / Plan
Assessment :
Right Upper Extremity Cellulitis
Conditions Prior To Admission
History of Breast Cancer s/p Lumpectomy, chemotherapy and XRT
Hypertension
Plan
Right Upper extremity Cellulitis
-Ultrasound negative for DVT
-Continue Antibiotics Vancomycin
-Elevate ARM
-Avoid Blood draw from Right Extremity.
Arrhythmia
- Patient had episodes of tachycardia up to 140s in the ED
- Echo 07/20/23 Normal biventricular size and systolic function without regional wall motion
�abnormality. Estimated LVEF 55-60%.
�Aortic sclerosis without stenosis.
-TSH normal
-Per cardiology input, Continue Current dosing of Long Acting Metoprolol
-EKG during Hypotensive episode Normal Sinus Rhythm
2/6 Systolic Murmur
-No prior information. Patient unaware
-Echo with aortic sclerosis
Hypertension
-Continue BB
Code Status: DNR
DVT prophyl: Lovenox
Anticipated Discharge: Within 24 hours
Objective Data
-
Labs:
Laboratory Results
07/22/23
07:35
WBC 3.9 L
Hgb 11.8 L
Hct 34.5 L
Plt Count 165
Sodium 139
Potassium 4.2
Chloride 111 H
Carbon Dioxide 18 L
BUN 28 H
Creatinine 0.8
Glucose 157 H
Calcium 9.1
Vital Signs:
Vital Signs
Temp Pulse Resp BP Pulse Ox
97.8 F 54 22 128/58 96
07/22/23 07:30 07/22/23 07:30 07/22/23 07:30 07/22/23 07:30 07/22/23 07:30
I&O
07/21/23 07/22/23 07/23/23
06:59 06:59 06:59
Intake Total 1180 / 1180 1939
Balance 1180 / 1180 1939
Review of Systems
-
History Source: Patient
All other systems: Reviewed and negative (except as documented)
Cardiac: Reports No Symptoms
Abdomen/GI: Reports No Symptoms
Skin: Reports Other (RUE erythema improving )
Physical Exam
-
General: Well Developed, Well Nourished and No Apparent Distress
HEENT: Normocephalic and Atraumatic
Respiratory: Clear to Auscultation; Negative Wheezes or Rales
Cardiac: Regular Rhythm and S1/S2
GI: Soft, Nontender and Nondistended
Musculoskeletal: No Clubbing, No Cyanosis and Edema, Right Upper Extrem
Skin: Other (RUE decreased swelling and redness)
Neuro: Awake, Alert, Oriented and AO x 3
Psych: Calm
Data Reviewed
-
Labs: Labs Reviewed by me and Discussed with Physician

Documented by User: Nirmal Crabtree MD 07/22/23 23:34
Subjective/Interval History
-
feels much improved, less swelling redness
Review of Systems
-
Genitourinary: Reports No Symptoms
--- NOTE | 2023-07-22 13:45 | CM ---
manager image reviewed patient's chart and patient was admitted from [facility], per Trudy cell [phone], in admissions patient is a prison resident at [facility] with a 15 day bedhold, case consultant faxed over clinical to [facility] admissions.
[facility]
Report [phone]
--- NOTE | 2023-07-22 16:12 | PHA.VAN.FU ---
Vancomycin Assessment / Plan
- Assessment
Renal Function: Stable
WBC's are: Stable
In the past 24 hrs, patient has been: Afebrile
- Dosing Plan
Continue: Vanc 1500mg Q24H
- Monitoring Plan
No level(s) ordered at this time: consider levels in next few days
- Follow Up
Pharmacy will continue to follow.
Vancomycin Follow UP
- -
Patient Age: 72
Patient Sex: Female
Vancomycin Day #: 3
Indication: Skin And Soft Tissue
Requesting Provider: Dr Tsang
Pertinent Antimicrobial Allergies:
Carbapenems - Hives
Cephalosporins - Hives
Penicillins - Hives
Sulfa (Sulfonamide Antibiotics) - Hives
Height / Weight:
Height 5 ft 4 in
Actual Weight 72.717 kg
Pertinent Past Medical History: Breast cancer
- Vital Signs / Lab Results
Temp Pulse Resp BP Pulse Ox
98.1 F 54 18 108/53 100
07/22/23 15:45 07/22/23 15:45 07/22/23 15:45 07/22/23 15:45 07/22/23 15:45
Lab Results - Hematology
07/19/23 07/20/23 07/20/23
22:28 04:24 23:50
WBC 6.6 6.2 5.0
07/21/23 07/22/23
09:11 07:35
WBC 4.4 L 3.9 L
Lab Results - Chemistry
07/19/23 07/20/23 07/20/23
22:28 04:24 23:50
BUN 18 H 18 H 31 H
Creatinine 0.9 0.8 1.0
Estimated Creat Clear 55 60 48
Albumin 3.1 L
07/21/23 07/22/23
09:11 07:35
BUN 27 H 28 H
Creatinine 0.8 0.8
Estimated Creat Clear 60 60
Albumin 3.0 L
07/19/23 07/20/23 07/21/23
22:28 02:15 17:01
Lactic Acid 0.8 Cancelled 1.4
Microbiology Results
07/19/23 22:28 Blood Culture - Preliminary
Blood/Venous Coagulase neg. staphylococcus
Additional testing on request
Gram Stain - Final
07/19/23 22:28 Blood Culture - Preliminary
Blood/Venous No Growth in 48 hours- Final report to follow
07/19/23 23:05 Urine Culture - Final
Urine
07/20/23 04:05 MRSA Screen - Final
Nose No Methicillin Resistant Staphylococcus aureus isolated.
--- NOTE | 2023-07-22 16:52 | PTCARENOTE ---
Toradol given for right arm/shoulder pain / with good relief. Patient with soft, slow speech. Patient OOB to chair with walker and assist x2. Patient tolerated sitting in chair for 3 hours. Patient has limited ROM in B/L shoulders and requires
her food trays to be set up and then she can feed herself.Patient states, 'I do not want to get back in bed, I am comfortable in the chair.' Call nicholson in reach.
[2023-07-22] MEDS: LOVENOX 40 MG SC (17:22)
[2023-07-22] MEDS: NSS IV (23:21)
--- NOTE | 2023-07-23 01:54 | PTCARENOTE ---
IV NS at 80 mL/hr renewed by Shalom Gonzalez. Patient's BP manually at 2300 was 94/48, pt was asymptomatic. Shalom Gonzalez notified, no new orders and will continue to monitor for now.
[2023-07-23 02:59] VITALS: BP 111/55
[2023-07-23] MEDS: NSS 1000 IV (04:18)
[2023-07-23] MEDS: VANCOCIN 300 MG IV (05:31)
[2023-07-23] MEDS: VANCOCIN 300 ML IV (05:31)
[2023-07-23 07:30] VITALS: BP 125/53
[2023-07-23 08:43] LABS: % Basophils 0.7 % (0-2); % Eosinophils 3.6 % (0-6); % Lymphocytes 52.6 % (20.5-51.1); % Monocytes 7.1 % (1.7-9.3); Absolute Eosinophils 0.2 10^3/uL (0-0.7); Absolute Lymphocytes 2.2 10^3/uL (1.2-3.4); Absolute Monocytes 0.3 10^3/uL (0.1-0.6); Absolute Neutrophils 1.5 10^3/uL (1.4-6.5); Hematocrit 32.3 % (37.0-47.0); Mean Corp Hgb Conc. 34.1 g/dL (33.0-37.0); Mean Corpuscular Hgb 31.3 pg (27.0-31.0); Mean Corpuscular Volume 91.8 fL (81.0-99.0); Mean Platelet Volume 10.8 fL (7.4-10.4); Nucleated Red Blood Cells % 0 %; Platelet Count 198 10^3/uL (130-400); Red Blood Cell Count 3.52 10^6/uL (4.20-5.40); Red Cell Dist. Width 12.1 % (11.5-14.5); White Blood Cell Count 4.2 10^3/uL (4.8-10.8)
[2023-07-23] MEDS: PROTONIX 40 MG PO (09:03)
[2023-07-23] MEDS: TOPROL XL 25 MG PO (09:03)
[2023-07-23] MEDS: TORADOL 15 MG IV (09:04)
[2023-07-23] MEDS: FEMARA 2.5 MG PO (09:04)
[2023-07-23] MEDS: ZESTRIL 20 MG PO (09:04)
[2023-07-23 09:35] LABS: Blood Urea Nitrogen 27 mg/dl (7-17); Calcium 8.6 mg/dl (8.4-10.2); Carbon Dioxide 22 mmol/L (22-30); Chloride 111 mmol/L (98-107); Estimated Creatinine Clearance 60 ml/min; Glucose 140 mg/dl (70-99); Potassium 3.9 mmol/L (3.5-5.1); Sodium 140 mmol/L (135-145); eGFR > 60.00
[2023-07-23 11:15] VITALS: BP 115/54
--- NOTE | 2023-07-23 12:10 | CM ---
Addendum entered by Yuki Casanova 07/23/23 13:20:
Left VM for son and DON at [facility] ambulance transport time 4 pm.
Addendum entered by Yuki Casanova 07/23/23 12:48:
Spoke with Nikki from [facility], no lymphedema pumps in stock, but if ordered on d/c instrucions they will order. MD updated.
Original Note:
Patient cleared for d/c back to [facility] today.
Trudy from [facility] off, left VM for WESLEY Jordan [phone] x [phone] to see if we could get a lymph edema pump ordered and to notify of impending d/c. Need to update MD if they can get the pump.
Await TCB from [facility] Nikki.
IMM completed.
Plan: skilled rehab today, no auth required.
patient will require ambulance transport, medical necessity forms on chart.
[facility]
Report [phone]
[2023-07-23 15:30] VITALS: BP 110/44
--- NOTE | 2023-07-23 15:33 | PHA.VAN.FU ---
Vancomycin Assessment / Plan
- Assessment
Renal Function: Stable
WBC's are: Stable
In the past 24 hrs, patient has been: Afebrile
- Dosing Plan
Continue: Vanc 1500mg Q24H
- Monitoring Plan
No level(s) ordered at this time: likely discharge today
- Follow Up
Pharmacy will continue to follow.
Vancomycin Follow UP
- -
Patient Age: 72
Patient Sex: Female
Vancomycin Day #: 4
Indication: Skin And Soft Tissue
Requesting Provider: Dr Tsang
Pertinent Antimicrobial Allergies:
Carbapenems - Hives
Cephalosporins - Hives
Penicillins - Hives
Sulfa (Sulfonamide Antibiotics) - Hives
Height / Weight:
Height 5 ft 4 in
Actual Weight 72.717 kg
Pertinent Past Medical History: Breast cancer
- Vital Signs / Lab Results
Temp Pulse Resp BP Pulse Ox
98.8 F 58 18 115/54 99
07/23/23 11:15 07/23/23 11:15 07/23/23 11:15 07/23/23 11:15 07/23/23 11:15
Lab Results - Hematology
07/20/23 07/21/23 07/22/23
23:50 09:11 07:35
WBC 5.0 4.4 L 3.9 L
07/23/23
07:46
WBC 4.2 L
Lab Results - Chemistry
07/20/23 07/21/23 07/22/23
23:50 09:11 07:35
BUN 31 H 27 H 28 H
Creatinine 1.0 0.8 0.8
Estimated Creat Clear 48 60 60
Albumin 3.0 L
07/23/23
07:46
BUN 27 H
Creatinine 0.8
Estimated Creat Clear 60
Albumin
07/21/23
17:01
Lactic Acid 1.4
Microbiology Results
07/19/23 22:28 Blood Culture - Final
Blood/Venous Coagulase neg. staphylococcus
Additional testing on request
Gram Stain - Final
07/19/23 22:28 Blood Culture - Preliminary
Blood/Venous No Growth in 72 hours- Final report to follow
--- NOTE | 2023-07-23 16:43 | W.PN.HOSP.TC ---
Addendum entered and electronically signed by Nirmal Crabtree MD 07/23/23 22:05:
Attending Addendum-
I saw and evaluated the patient. I reviewed the resident�s note and agree with findings and plan as documented in the resident�s note. feel much improved Exam: heart RRR 23/6 Sm @ RUSB, lungs clear abd soft LE no edema skin RUE swelling and
redness-fading, not warm pulses intact
Plan-
# RUE cellulitis- improving, transition to PO clinda on DC
# Breast ca- cont meds
# Leukopenia- med s/e from [facility] repeat CBC as OP
# Metabolic Acidosis- resolved
Dispo DC to [facility] today
Time spent coordinating care, review of plan of care with resident, review of records, med rec, consults, notes, labs, rads, d/w nursing/sw, DC planning - 38 mins
Original Note:
Documented by User: Ellyn Guerrier MD, Resident 07/23/23 16:56
Today's Communication/Plan
-
IV vancomycin one more day.
Transition to Oral Clindamycin
Discharge to Senior Living
For her Right Upper Extremity Lymphedema, Patient will require a Lymphedema Pump at [facility].
Assessment / Plan
Assessment / Plan
Assessment :
Right Upper Extremity Cellulitis
Conditions Prior To Admission
History of Breast Cancer s/p Lumpectomy, chemotherapy and XRT
Hypertension
Plan
Right Upper extremity Cellulitis
-Edema improved.
-Right upper extremity erythema, swelling improved.
-IV vancomycin one more day, then transition to Oral Clindamycin
Code Status: DNR
DVT prophyl: Lovenox
Anticipated Discharge: Today
Subjective/Interval History
-
4
Objective Data
-
Labs:
Laboratory Results
07/23/23
07:46
WBC 4.2 L
Hgb 11.0 L
Hct 32.3 L
Plt Count 198
Sodium 140
Potassium 3.9
Chloride 111 H
Carbon Dioxide 22
BUN 27 H
Creatinine 0.8
Glucose 140 H
Calcium 8.6
Vital Signs:
Vital Signs
Temp Pulse Resp BP Pulse Ox
98.2 F 54 19 110/44 97
07/23/23 15:30 07/23/23 15:30 07/23/23 15:30 07/23/23 15:30 07/23/23 15:30
I&O
07/22/23 07/23/23 07/24/23
06:59 06:59 06:59
Intake Total 1939 900 / 900
Balance 1939 900 / 900
Review of Systems
-
All other systems: Reviewed and negative (except as documented )
Musculoskeletal: Denies Edema
Skin: Reports Other (erythema improved overall. No edema. Pulses intact. )
Physical Exam
-
General: Well Developed and Well Nourished
HEENT: Normocephalic and Atraumatic
Respiratory: Clear to Auscultation; Negative Wheezes, Rales or Rhonchi
Cardiac: Regular Rhythm and S1/S2
GI: Soft, Nontender, Nondistended and Normal Bowel Sounds
Musculoskeletal: No Clubbing, No Cyanosis and No Edema
Skin: Warm and Other (RUE swelling improved. No edema. Erythema improved. )
Neuro: Awake, Alert, Oriented and AO x 3
Psych: Calm
Data Reviewed
-
Labs: Labs Reviewed by me and Discussed with Physician

Documented by User: Nirmal Crabtree MD 07/23/23 22:00
Subjective/Interval History
-
Feels much improved
--- NOTE | 2023-07-23 16:48 | W.DCSUMMARY ---
Addendum entered and electronically signed by Nirmal Crabtree MD 07/23/23 22:02:
Attending Addendum:
Read reviewed and agree
Original Note:
Documented by User: Ellyn Guerrier MD, Resident 07/23/23 17:02
Discharge Summary
Discharge Data
Date of Admission: 07/20/23
Date of Discharge: 07/23/23
-
Pending Results: No
Hospital Course
DISCHARGE DIAGNOSIS:
1. Right Upper Extremity Cellulitis
2. History of Breast Cancer s/p Lumpectomy, chemotherapy and XRT
3. Hypertension
4. Right Upper extremity Lymphedema
BRIEF HOSPITAL COURSE: This is a 72 year-old female with PMH of breast CA (radiation/chemo, lumpectomy), right upper extremity lymphedema, hypertension, and GERD who presented to ED from [facility] for 1 month of right upper extremity
redness, worsened swelling, discomfort and fever up to 101.5. �Patient first noted redness in the RUE about onE month ago - localized to the elbow at that time. She stated that the redness steadily increased over the past month. Evaluation with an
Ultrasound of the Right extremity as negative for DVT. Patient was started on Vancomycin IV with improvement of symptoms throughout the course of her Hospital stay. She will be discharged with transition to Oral clindamycin.
History of Breast Cancer s/p Lumpectomy, chemotherapy and XRT: She will be maintained on Letrozole.
Hypertension: She will be continued on current home medication.
Right Upper Extremity Lymphedema: Patient will require a Lymphedema Pump at [facility].
On the day of discharge: Temperature: 98.2 BP: 115/54 Pulse: 54 O2 Sat: 97% on room air
Physical Examination: The patient is awake, in no acute distress. Lungs are clear to auscultation. Heart is regular regular with presence of S1/S2. Abdomen is soft, non tender, non distended with normal bowel sounds. Extremities: Absence of Edema
Skin Bilateral Upper extremity, Erythema improved since admission with faded redness on discharge. No clubbing, no cyanosis, No edema bilateral lower extremity.
Discharge Plan
-
Patient Disposition: Usp/SNF
Discharge Diagnosis/Procedures: Right Upper Extremity Cellulitis, Acquired Lymphedema
Condition: Good
Diet: As tolerated
Activity: As tolerated
Referrals:
Floyd Devlin DO [Family Provider] - in four to six weeks
Additional Discharge Medication Instructions: Start Clindamycin 30mg Q6H for the next 6days
Lymphedema Pump for Right Upper Extremity.
Prescriptions:
New
clindamycin HCl 300 mg capsule
300 mg PO Q6H 6 Days Qty: 24 0RF
Continued
multivitamin Tablet
1 tab PO DAILY
acetaminophen 325 mg Tablet
650 mg PO Q4H PRN (Reason: Pain / Temp > 101)
lidocaine 4 % Adhesive Patch,Medicated
1 patch TOPICAL DAILY
lisinopril 20 mg Tablet
20 mg PO DAILY
ondansetron HCl 4 mg Tablet
4 mg PO Q6H PRN (Reason: Nausea)
potassium chloride 10 mEq Tablet Extended Release
10 meq PO DAILY
magnesium hydroxide [Milk of Magnesia] 400 mg/5 mL Suspension
5 ml PO DAILY PRN (Reason: constipation)
bisacodyl 10 mg Suppository
10 mg IN DAILY PRN (Reason: Constipation)
ferrous sulfate 325 mg (65 mg iron) Tablet
325 mg PO DAILY
Fleet Enema 19-7 gram/118 mL Enema
118 ml IN DAILY PRN (Reason: Constipation)
omeprazole 20 mg Capsule,Delayed Release(Dr/Ec)
20 mg PO DAILY
letrozole 2.5 mg Tablet
2.5 mg PO DAILY
metoprolol tartrate 25 mg Tablet
25 mg PO DAILY
magnesium oxide 400 mg magnesium Tablet
400 mg PO DAILY
Discharge Orders:
Discharge Patient (As Directed); Ordered 07/23/23
Ordered By: Ellyn Guerrier
Discharge Date and Time
Discharge Date/Time: 07/23/23 16:29

Documented by User: Nirmal Crabtree MD 07/23/23 21:58
Discharge Summary
Discharge Data
Date of Admission: 07/20/23
Date of Discharge: 07/23/23
Discharge Plan
-
Patient Disposition: [facility]/SNF
Discharge Diagnosis/Procedures: Right Upper Extremity Cellulitis, Acquired Lymphedema
Condition: Good
Diet: As tolerated
Activity: As tolerated
Referrals:
Floyd Devlin DO [Family Provider] - in four to six weeks
Additional Discharge Medication Instructions: Start Clindamycin 30mg Q6H for the next 6days
Lymphedema Pump for Right Upper Extremity.
Prescriptions:
New
clindamycin HCl 300 mg capsule
300 mg PO Q6H 6 Days Qty: 24 0RF
Continued
multivitamin Tablet
1 tab PO DAILY
acetaminophen 325 mg Tablet
650 mg PO Q4H PRN (Reason: Pain / Temp > 101)
lidocaine 4 % Adhesive Patch,Medicated
1 patch TOPICAL DAILY
lisinopril 20 mg Tablet
20 mg PO DAILY
ondansetron HCl 4 mg Tablet
4 mg PO Q6H PRN (Reason: Nausea)
potassium chloride 10 mEq Tablet Extended Release
10 meq PO DAILY
magnesium hydroxide [Milk of Magnesia] 400 mg/5 mL Suspension
5 ml PO DAILY PRN (Reason: constipation)
bisacodyl 10 mg Suppository
10 mg IN DAILY PRN (Reason: Constipation)
ferrous sulfate 325 mg (65 mg iron) Tablet
325 mg PO DAILY
Fleet Enema 19-7 gram/118 mL Enema
118 ml IN DAILY PRN (Reason: Constipation)
omeprazole 20 mg Capsule,Delayed Release(Dr/Ec)
20 mg PO DAILY
letrozole 2.5 mg Tablet
2.5 mg PO DAILY
metoprolol tartrate 25 mg Tablet
25 mg PO DAILY
magnesium oxide 400 mg magnesium Tablet
400 mg PO DAILY
Discharge Orders:
Discharge Patient (As Directed); Ordered 07/23/23
Ordered By: Ellyn Guerrier
Discharge Date and Time
Discharge Date/Time: 07/23/23 16:29
== END 2023-07-23 16:29 | DRG 603 ==
LOC: 4 WEST ACU 00:47
PROVIDERS: Nurse Practitioner Family; Nurse Practitioner Gerontology; Student in an Organized Health Care Education/Training Program; ADMITTING PHYSICIAN Hospitalist; ATTENDING PHYSICIAN Family Medicine; EMERGENCY PHYSICIAN Student in an Organized Health Care Education/Training Program; FAMILY PHYSICIAN Family Medicine; OTHER PHYSICIAN Internal Medicine Cardiovascular Disease
DX: L03.113 Cellulitis of right upper limb (principal); E87.20 Acidosis, unspecified; Z66 Do not resuscitate; I89.0 Lymphedema, not elsewhere classified; I10 Essential (primary) hypertension; G20.C Parkinsonism, unspecified; I34.81 Nonrheumatic mitral (valve) annulus calcification; I70.0 Atherosclerosis of aorta; C50.919 Malignant neoplasm of unspecified site of unspecified female breast
CPT/HCPCS: 80048; 80053; 81003; 81015; 82962; 83605; 83735; 84145; 84443; 84484; 85025; 85027; 85610; 85730; 87040; 87070; 87086; 87150; 87205; 93005; 93306; 93971; 97110; 97163; 97167; 97530; 97535; 99285